=== PATIENT | female | born 1935 | race Caucasian/White ===

== ENCOUNTER → 2022-03-08 01:27 | Outpatient (CLI) | payer MEDICARE, SELFPAY ==
--- NOTE | 2022-03-08 13:40 | DI.RAD_ITS ---
Exam(s) XR HIP LT COMPLETE AP PELVIS EXAM: XR HIP LT COMPLETE AP PELVIS CLINICAL HISTORY: LT HIP PAIN, M25.552, OSTEOPOROSIS, M81.0 TECHNIQUE: COMPARISON: No exams were available for comparison FINDINGS: Two views were obtained. Cartilaginous joint spaces of the hips appear fairly well maintained. Mild acetabular marginal osteophytes noted bilaterally. No other significant bony or soft tissue abnorma lity seen. IMPRESSION: Mild DJD both hips. RADIATION DOSE DELIVERED: Total DLP
== END ==
PROVIDERS: PCP Internal Medicine; Visit Provider Internal Medicine
DX: M16.0 Bilateral primary osteoarthritis of hip (principal); M81.0 Age-related osteoporosis without current pathological fracture
CPT/HCPCS: 73502